=== PATIENT | male | born 1955 | race Caucasian/White ===

== ENCOUNTER → 2021-05-24 | Outpatient (CLI) | payer OTHER ==
--- NOTE | 2021-05-24 10:29 | MR ---
EXAMINATION TYPE: MR Prostate wo/w con DATE OF EXAM: 05/24/2021 COMPARISON: None. INDICATION: Elevated PSA PSA: 8.5 ng/ml in April 2021 Recent Biopsy and Date: None Pathology Report (If Applicable): n/a TECHNIQUE: Examination was performed using a 3T MRI without an endorectal coil. Multiparametric imaging was perf ormed with T2 mutliplanar sequences, axial diffusion weighted imaging and dynamic contrast enhanced i maging, utilizing 10 mL intravenous Gadavist gadolinium contrast. FINDINGS: There is no clinically significant cancer identified. PROSTATE VOLUME: 4.0 cm SI x 3.0 cm AP x 4.6 cm LR Vol= 28.9 cc Predicted PSA equals 3.468 PSA DENSITY: 0.29 ng/ml/cc Prostate gland measures upper limits of normal. Peripheral zone is thinned with some areas of indisti nct hypointense signal, most suspicious area shows linear diminished signal on ADC mapping bilateral right mid zone image 156 series 802 with subtle restricted diffusion seen best the 1000th image 240 b ut linear pattern consistent with DWI score 2. In the transitional zone there is more suspicious 1.4 x 1.0 cm circumscribed lesion of moderate T2 hy pointensity that shows moderate hypointense signal on ADC mapping and increased signal on diffusion-w eighted imaging axial image 16 in the deep right apex. PI RADS 4 lesion. Prostate capsule is maintained. Seminal vesicles appear within normal limits. No abnormal pelvic breanne opathy clearly seen. Bladder shows mild/moderate wall thickening and trabeculation. There is degenera tive changes both hips with asymmetric increased small to moderate-sized left-sided effusion extendin g superiorly and laterally IMPRESSION: Prostate gland measures upper limits of normal size. Lesion of concern deep right apical level noted Highest Assessment Category: 4 MRI Stage: T0 N0 M0 based on review of pelvic images. False negative rates for MRI range from 5-20% depending on risk profile. Advise sampling with particular attention to area of concern above. Assessment Categories: 1 ? Very low (clinically significant cancer is highly unlikely to be present) 2 ? Low (clinically significant cancer is unlikely to be present) 3 ? Intermediate (the presence of clinically significant cancer is equivocal) 4 ? High (clinically significant cancer is likely to be present) 5 ? Very high (clinically significant cancer is highly likely to be present)
== END | disposition home or self-care (01) ==
LOC: RADMRIMAIN 08:05
PROVIDERS: ATTEND Urology
DX: R97.20 Elevated prostate specific antigen [PSA] (principal); N42.89 Other specified disorders of prostate
CPT/HCPCS: 84153; 72197; A9585

== ENCOUNTER 2022-08-17 10:13 | Day surgery (SDC) | payer OTHER ==
[2022-08-15 10:35] VITALS: BMI 29.8
[~2022-08-17 10:13] MED LIST: LACTATED RINGERS 1,000 ML IV SCH; LIDOCAINE 1% (10MG/ML) FOR IV START INTRADERMA PRN
[2022-08-17 12:15] VITALS: RESP 16; TEMP 98
[2022-08-17] MEDS ORDERED: PROPOFOL 10 MG/ML 20 ML VIAL IV ONE (13:47)
--- NOTE | 2022-08-17 14:07 | P.PCN ---
Date of Procedure: 08/17/22 Procedure(s) Performed: BRIEF HISTORY: Patient is a 66-year-old pleasant white female scheduled for an elective colonoscopy as a part of screening for colon cancer. PROCEDURE PERFORMED: Colonoscopy with biopsy. PREOPERATIVE DIAGNOSIS: Screening for colon cancer. IV sedation per Anesthesia. PROCEDURE: After informed consent was obtained, the patient, was brought into the endoscopy unit. IV sedation was administered by Anesthesia under continuous monitoring. Digital rectal examination was normal. Initially the Olympus CF-160 flexible video colonoscope was then inserted in the rectum, gradually advanced into the cecum without any difficulty. Careful examination was performed as the scope was gradually being withdrawn. Ileocecal valve and the appendiceal orifice were visualized and appeared normal. Prep was excellent. Mucosa of the cecum, appeared normal. In the ascending colon there was a 3-4 mm sessile polyp removed by cold biopsy. Rest of the ascending colon, transverse colon, descending colon, sigmoid colon, and rectum appeared normal. Retroflexion was performed in the rectum and no lesions were seen. The patient tolerated the procedure well. IMPRESSION: 3-4 mm ascending colon polyp status post cold biopsy and Rest of the colon appeared normal RECOMMENDATIONS: Findings of this examination were discussed with the patient as well as a family. He was advised to with the biopsy results. If the biopsy reveals adenomatous have a repeat colonoscopy in 5 years.
[2022-08-17 14:26] VITALS: BP 118/78; PULSE 60
== END 2022-08-17 14:45 | disposition home or self-care (01) ==
LOC: ORWHC2ENDO 10:13
PROVIDERS: ATTEND Internal Medicine Gastroenterology
DX: Z12.11 Encounter for screening for malignant neoplasm of colon (principal); K63.5 Polyp of colon; I10 Essential (primary) hypertension; F17.200 Nicotine dependence, unspecified, uncomplicated; Z85.46 Personal history of malignant neoplasm of prostate; Z79.899 Other long term (current) drug therapy
CPT/HCPCS: 88305; 45380; J2704

== ENCOUNTER → 2023-12-19 | Outpatient (CLI) | payer MEDICARE, BC ==
--- NOTE | 2023-12-19 17:44 | PE ---
EXAMINATION TYPE: PET CT fusion skull to thigh DATE OF EXAM: 12/19/2023 CLINICAL INDICATION:Male, 68 years old with history of C61 MALIGNANT NEOPLASM OF PROSTATE; TECHNIQUE: Following the intravenous administration of 5.64 mCi of Ga-68 Illuccix (PSMA), whole bod y images are performed from the skull base to the midthigh. Images are reviewed on the computer in t he coronal, axial, and sagittal planes. Reconstructed rotating images are created on independent wor kstation and reviewed on the computer. A non-contrast CT is performed in conjunction with the PET s can. CT DLP: 33.75 mGycm, Automated exposure control for dose reduction was used. COMPARISON: CT None, PET/CT None, MRI: 06/02/2022 FINDINGS: Mediastinal SUV mean is 1.71. Hepatic parenchyma SUV mean is 5.45. SKULL BASE AND NECK: No suspicious radiotracer activity. CHEST, MEDIASTINUM, AND HILAR REGION: No suspicious radiotracer activity. There are 2 right midlung adjacent 5 mm pulmonary nodules. No radiotracer uptake identified. ABDOMEN AND PELVIS: Postsurgical changes from prostate resection without suspicious radiotracer activity within the prost atectomy bed. There are 2 right perirectal lymph nodes identified with more inferior one measuring 6 mm (series 3, 245) and the more superior one measuring 5 mm (series 3, image 238). These demonstrate a max SUV of 3 .5 and 2.57, respectively. Right external iliac chain lymph node measuring 7 mm (series 3, image 220) with a maximum SUV of 2.56 . MUSCULOSKELETAL STRUCTURES: No suspicious radiotracer activity. OTHER CT: Mildly enlarged heart. Ascending thoracic aortic aneurysm measuring up to 4.5 cm. Small fat filled umbilical hernia. Underdistended urinary bladder with circumferential wall thickening. Postsu rgical changes from prostate resection. Small right hydrocele. Mild atherosclerotic calcification of the aorta and its branches. IMPRESSION: 1. Postsurgical changes from prostatectomy without suspicious radiotracer uptake within the prostate bed. 2. Few perirectal and right external iliac chain subcentimeter lymph nodes demonstrating mild radiot racer uptake. Raises suspicion for lymph node metastasis.
== END | disposition home or self-care (01) ==
LOC: RADPETMAIN 14:44
PROVIDERS: ATTEND Urology
DX: C61 Malignant neoplasm of prostate
CPT/HCPCS: 78815

== ENCOUNTER → 2024-07-10 | Outpatient (CLI) | payer MEDICARE, BC ==
[2024-07-10 11:07] LABS: African American GFR (CKD) >90 (>60 ml/min/1.73 sqM); Blood Urea Nitrogen 20 mg/dL (9-20); Non-African American GFR(CKD) >90 (>60 ml/min/1.73 sqM)
--- NOTE | 2024-07-10 12:15 | CT ---
EXAMINATION TYPE: CT abdomen pelvis w con DATE OF EXAM: 07/10/2024 COMPARISON: PET/CT December 19, 2023 CLINICAL INDICATION: Male, 68 years old with history of C61 prostate ca, Malignant neoplasm of prosta te, TECHNIQUE: CT scan of the abdomen and pelvis is performed with IV Contrast, patient injected with 100 ml mL of I sovue 300., (none if empty) Oral contrast used: without Oral Contrast (none if empty) CT DLP: 1283 mGycm, Automated exposure control for dose reduction was used. FINDINGS: LUNG BASES: No significant abnormality is appreciated. LIVER/GB: Liver is heterogeneously hypodense suggesting diffuse fatty infiltrative hepatocellular dis ease. PANCREAS: No significant abnormality is seen. SPLEEN: No significant abnormality is seen. ADRENALS: No significant abnormality is seen. KIDNEYS: No significant abnormality is seen. BOWEL: No significant abnormality is seen. PROSTATE/SEMINAL VESICLES: Prostate remains surgically absent. LYMPH NODES: No new greater than 1cm abdominal or pelvic lymph nodes are appreciated. Subcentimeter perirectal lymph nodes are less well seen/smaller on current study OSSEOUS STRUCTURES: Moderate to severe disc space narrowing second this phenomenon at the L4-L5 level is redemonstrated. OTHER: [id number] peripheral calcified plaque of the aorta extends into branch vessels. IMPRESSION: No suspicious new mass or adenopathy to suggest active neoplastic recurrence. [facility], , 07/10/2024 12:13 PM
== END | disposition home or self-care (01) ==
LOC: RADCTMAIN 10:19
PROVIDERS: ATTEND Radiology Radiation Oncology
DX: C61 Malignant neoplasm of prostate (principal)
CPT/HCPCS: 82565; 84520; 74177; 36415; Q9967